=== PATIENT | male | born 1990 | race Caucasian/White ===

== ENCOUNTER 2025-05-26 12:54 | Emergency (ER) | payer OTHER, SELFPAY ==
[2025-05-26] VITALS (9 sets, daily range): BP systolic 131–163; BP diastolic 73–108; PULSE 79–81; TEMP 37.1; O2SAT 92–96; BMI 32.5
--- NOTE | 2025-05-26 13:26 | US_ITS ---
[address] [address] Patient Name: CHARAN SEBASTIAN MRN: [id number] date: 1990 Sex: M Assigned Patient Location: ER Current Patient Location: ER Accession/Order Number: [id number] Exam Date: 05/26/2025 14:41 Report Date: 05/26/2025 14:43 At the request of: HOWARD SIMS Procedure: US right upper quadrant LIMITED ABDOMINAL ULTRASOUND: CLINICAL HISTORY: RUQ pain COMPARISON: None TECHNIQUE: Grayscale and color Doppler images of the right upper quadrant organs were obtained. FINDINGS: Pancreas: Not visualized. Liver: Fatty infiltration. Gallbladder: Cholelithiasis. No wall thickening. Positive Faith sign. CBD: 2.2 mm. RT KIDNEY: No hydronephrosis. US/US right upper quadrant IMPRESSION: Fatty infiltration with cholelithiasis. Given the positive Faith sign, if acute cholecystitis is of clinical concern, further evaluation with HIDA scan is suggested. Impression dictated by: Alan Romero Jr., D.O. 05/26/2025 2:43 PM Dictation Location: [place] [address] Electronically authenticated by: [id number] Y Date: 05/26/2025 14:43
--- NOTE | 2025-05-26 13:33 | ED_ITS ---
HPI HPI - General Adult General Chief complaint: Abdominal Pain Stated complaint: UPPER EXTERMITY PAIN SPIT UP BLOOD Time Seen by Provider: 05/26/25 13:03 Source: patient Mode of arrival: walk-in History of Present Illness HPI narrative: Patient is a 34-year-old male with a PMH of anxiety that presents to the emergency department today with complaints of right upper quadrant abdominal pain and bloating that has been intermittently present for about a week, worse this morning. He states that the pain will get bad for about 5 to 6 hours after a meal intermittently throughout the last week. He denies any abdominal surgeries. He has tried Tylenol and famotidine for the pain without relief. He denies any chest pain or shortness of breath or heartburn symptoms. He states he also has been having bowel movements and vomiting intermittently when the pain is present throughout the last week as well. This morning he notes that his vomit was tinged with blood. He denies any blood in his bowel movements. He denies any illicit drug use but does endorse a long history of alcohol use, approximately 6-12 beers a night for many years. He states that he has abstained from alcohol for the last 2 weeks. Related Data Home Medications ?Medication ?Instructions ?Recorded ?Confirmed paroxetine HCl 20 mg tablet 20 mg PO DAILY 05/26/25 Previous Rx's ?Medication ?Instructions ?Recorded ondansetron HCl 4 mg tablet 4 mg PO Q6H PRN nausea and 05/26/25 vomiting #20 tabs oxycodone-acetaminophen 5 mg-325 1 tab PO Q6H PRN pain #20 tabs 05/26/25 mg tablet (Endocet) Allergies Allergy/AdvReac Type Severity Reaction Status Date / Time No Known Drug Allergies Allergy Verified 05/26/25 13:00 Opioid HPI Opioid Management Most Recent Opioid Data: Last Pain Scale 8 Today, 13:40 Last MAR Pain Assessment Today, 13:40 Review of Systems ROS Status of ROS 10 or more systems reviewed and unremark able except as noted in history and below PFSH PFSH Social History Little interest or pleasure in doing things: not at all Feeling down, depressed, or hopeless: not at all Exam Narrative Exam Narrative: General: Laying on ED cart, appears to be in pain but in no distress, age- appropriate Skin: Warm, dry, no pallor. No rash. Head: Normocephalic, atraumatic. Neck: Supple, non-tender. Eye: Pupils are equal, round and EOMI. No scleral icterus. Ears, Nose, Mouth, and Throat: No nasal mucosal hypertrophy. Oral mucosa is moist, no posterior oropharynx erythema, uvula is mid-line Cardiovascular: Regular Rate and Rhythm without murmur, gallop or rub. Respiratory: No accessory muscle use or respiratory distress. Lungs are clear to auscultation, no wheezing, rales or rhonchi Chest Wall: no tenderness Back: No midline thoracic or lumbar vertebral tenderness. Musculoskeletal: Full ROM of all extremities, no calf or popliteal tenderness GI: Abdomen is soft, nondistended, tender to palpation to the right upper quadrant, positive Faith sign, no rebound tenderness. No masses appreciated. No guarding or rigidity noted. Neurological: A&O x4. No cranial nerve dysfunction observed. No truncal ataxia. Moves all extremities. Sensation intact. Psychiatric: Cooperative and interactive. Normal mood and affect. Constitutional Vital Signs, click to edit/add: Last Vital Signs Temp 98.8 F 05/26/25 13:01 Pulse 81 05/26/25 13:48 Resp 22 H 05/26/25 13:48 BP 131/73 05/26/25 16:07 Pulse Ox 95 05/26/25 16:10 O2 Del Method Room Air 05/26/25 13:01 Course Reevaluation(s) Reevaluation #1: Patient responded well to first dose of morphine and Zofran but pain greatly returned after the ultrasound. 4 mg of morphine ordered. Patient and significant other updated with lab results. Waiting on ultrasound right upper quadrant results. Time: 14:33 Reevaluation #2: Patient attempting to sit up to change clothes for discharge and feeling woozy and the pain is causing him to not be able to catch his breath. 30 mg IV Toradol and 1 L normal saline bolus ordered. Time: 15:14 Reevaluation #3: I did call and speak with Dr. Oliveros, general surgeon at [facility], to see if patient could be seen tomorrow, he states the earliest they can see is Saturday. We are calling office to get patient an appointment to have at discharge. Patient states he is feeling better after the Toradol and IVF. Time: 16:07 Vital Signs Vital signs: Vital Signs Temperature 98.8 F 05/26/25 13:01 Pulse Rate 79 05/26/25 13:01 Respiratory Rate 18 05/26/25 13:01 Blood Pressure 163/108 H 05/26/25 13:01 Pulse Oximetry 96 05/26/25 13:01 Oxygen Delivery Method Room Air 05/26/25 13:01 Temperature 98.8 F 05/26/25 13:01 Pulse Rate 81 05/26/25 13:48 Respiratory Rate 22 H 05/26/25 13:48 Blood Pressure 131/73 05/26/25 16:07 Pulse Oximetry 95 05/26/25 16:10 Oxygen Delivery Method Room Air 05/26/25 13:01 Medical Decision Making MDM Narrative Medical decision making narrative: 34-year-old male with intermittent right upper quadrant abdominal pain, bloating, vomiting, diarrhea for approximately a week. History of anxiety and alcohol abuse. No previous abdominal surgeries. BP hypertensive on arrival. Heart rate stable. Afebrile. Positive Faith sign, abdominal exam without peritoneal signs. ECG ordered and NSR noted. IV placed and 4 mg of Zofran and 4 mg of morphine given for pain and nausea. Ultrasound right upper quadrant ordered and reveals cholelithiasis with no wall thickening. Labs as below. Given RUQ US findings patient likely has biliary colic with no signs of acute cholecystitis or cholangitis. Less likely to represent acute pancreatitis (neg lipase), PUD (including gastric perforation), acute infectious processes (pneumonia, hepatitis, pyelonephritis), atypical appendicitis, vascular catastrophe, bowel obstruction or viscus perforation, or acute coronary syndrome. Presentation not consistent with other acute, emergent causes of abdominal pain at this time. Appointment was attempted to be made with Dr. Oliveros in [place] for Saturday after speaking with him. His office states that patient's insurance requires a PCP referral or he would be self pay. Patient does have a new PCP appointment scheduled for Saturday. I encouraged him to keep this as he does not want to self-pay at Dr. Oliveros' office. I did provide Dr. Maxwell information on the discharge as well. Patient's pain is not controlled and he will be discharged with Percocet and Zofran to home. I did give him a work note to be off today and tomorrow. I discussed that he can always return to the ED if he experiences any new or worsening symptoms. Differential Diagnosis Differential Diagnosis: Cholecystitis, cholangitis, pancreatitis, acute hepatitis Lab Data Lab results reviewed: Yes I reviewed the patient's lab results Lab results narrative: UA, CBC, CMP, amylase, lipase ordered on arrival. CBC with no leukocytosis. Hypokalemia, K 3.2. Liver function tests and amylase/lipase within normal limits. UA WNL Labs: Lab Results 05/26/25 05/26/25 Range/Units 13:10 13:45 WBC 10.6 (4.0-11.0) 10^3/uL RBC 4.99 (4.70-6.10) 10^6/uL Hgb 15.0 (14.0-18.0) g/dL Hct 42.6 (42.0-54.0) % MCV 85.4 (80.0-94.0) fL MCH 30.1 (25.9-34.0) pg MCHC 35.2 (29.9-35.2) g/dL RDW 13.0 (11.0-15.0) % Plt Count 320 (150-450) 10^3/uL MPV 9.5 (9.5-13.5) fL Neut % (Auto) 77.2 H (43.0-75.0) % Lymph % (Auto) 13.7 L (20.5-60.0) % Isabella % (Auto) 7.6 (1.7-12.0) % Eos % (Auto) 0.5 L (0.9-7.0) % Baso % (Auto) 0.8 (0.2-2.0) % Neut # (Auto) 8.2 H (1.4-6.5) 10^3/uL Lymph # (Auto) 1.5 (1.2-3.8) 10^3/uL Isabella # (Auto) 0.8 (0.3-0.8) 10^3/uL Eos # (Auto) 0.1 (0.0-0.7) 10^3/uL Baso # (Auto) 0.1 (0.0-0.1) 10^3/uL Abs Immat Gran (auto) 0.02 (0.00-0.03) 10^3/uL Imm/Tot Granulo (auto) 0.2 (0.0-0.5) % Sodium 137 (136-145) mmol/L Potassium 3.2 L (3.5-5.1) mmol/L Chloride 100 (98-107) mmol/L Carbon Dioxide 24.2 (21.0-32.0) mmol/L Anion Gap 16.0 BUN 14.0 (7.0-18.0) mg/dL Creatinine 0.98 (0.70-1.30) mg/dL Est GFR ( Amer) >60 (>=60 mL/min/1.73m^2) Est GFR (Non-Af Amer) >60 (>=60 mL/min/1.73m^2) BUN/Creatinine Ratio 14.3 Glucose 114 H (74-106) mg/dL Calcium 9.6 (8.5-10.1) mg/dL Total Bilirubin 0.5 (0.2-1.0) mg/dL AST 20 (15-37) U/L ALT 44 (16-63) U/L Alkaline Phosphatase 64 (46-116) U/L Total Protein 7.6 (6.4-8.2) g/dL Albumin 3.5 (3.4-5.0) g/dL Globulin 4.1 g/dL Albumin/Globulin Ratio 0.9 Amylase 48 (25-115) U/L Lipase 20.0 (16.0-77.0) U/L Urine Color Yellow (YELLOW) Urine Clarity Clear (CLEAR) Urine pH 6.5 (5.0-9.0) Ur Specific [place] 1.015 (1.005-1.025) Urine Protein Negative (NEG/TRACE) mg/dL Urine Glucose (UA) Negative (NEGATIVE) mg/dL Urine Ketones 40 A (NEGATIVE) mg/dL Urine Occult Blood Negative (NEGATIVE) Urine Nitrite Negative (NEGATIVE) Urine Bilirubin Negative (NEGATIVE) Urine Urobilinogen 0.2 (0.2-1.0) EU/dL Ur Leukocyte Esterase Negative (NEGATIVE) Urine RBC 0-2 (0-2) #/HPF Urine WBC None seen (NONE SEEN) #/HPF Ur Squamous Epith Cells None seen (NONE/RARE) #/LPF Urine Crystals None seen (None Seen) #/HPF Urine Bacteria Trace A (NONE SEEN) #/HPF Urine Casts None seen (NONE SEEN) #/LPF Urine Mucus None seen (NONE SEEN) Ur Culture Indicated? No Imaging Data US - abdomen: Attestation: I have reviewed the pertinent imaging results. Radiologist's impression: ITS Impressions Upper Quadrant Ultrasound 05/26/25 13:26 IMPRESSION: Fatty infiltration with cholelithiasis. Given the positive Faith sign, if acute cholecystitis is of clinical concern, further evaluation with HIDA scan is suggested. Impression dictated by: Alan Romero Jr., D.O. 05/26/2025 2:43 PM Dictation Location: [place] [address] Electronically authenticated by: [id number] Y Date: 05/26/2025 14:43 ECG Data Attestation: ?I have reviewed the pertinent ECG results. Discharge Plan Discharge Chief Complaint: Abdominal Pain Clinical Impression: Cholelithiasis, Biliary colic Patient Disposition: Home, Self-Care Time of Disposition Decision: 15:02 Condition: Good Mode of Transportation: Private Vehicle Prescriptions / Home Meds: New oxycodone-acetaminophen [Endocet] 5-325 mg tablet 1 tab PO Q6H PRN (Reason: pain) Qty: 20 0RF ondansetron HCl 4 mg tablet 4 mg PO Q6H PRN (Reason: nausea and vomiting) Qty: 20 0RF No Action paroxetine HCl 20 mg tablet 20 mg PO DAILY Print Language: Romanian Instructions: Biliary Colic (ED), Gallstones (ED) Referrals: Obri, Samer [Other] - As soon as possible Referral Note: Keep appointment for Saturday. Sonny Maxwell MD [Physician, General Surgery] - As soon as possible Referral Note: Call for follow-up after discharge or get referral through PCP. Return to the emergency department if you experience new or worsening symptoms. Physician,Non-Staff, [Primary Care Provider] - 1 week Discharge Date/Time: 05/26/25 16:44
[2025-05-26] MEDS: MORPHINE SULFATE 4 MG/ML VIAL IV ×2 (13:40→14:44)
--- NOTE | 2025-05-26 13:42 | ECG_ITS ---
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 Measurements Intervals [place] Rate: 80 P: 19 VA: 144 QRS: 39 QRSD: 102 T: 22 QT: 370 QTc: 406 Interpretive Statements 1100 Sinus rhythm 2420 RSR (QR) in lead V1/V2, consistent with right ventricular conduction delay 9130 borderline ECG No previous ECG available for comparison Electronically Signed On 05-27-2025 19:25:09 EDT by HERBERTH WATSON M.D.
[2025-05-26 13:52] LABS: Hematocrit 42.6 % (42.0-54.0); Hemoglobin 15.0 g/dL (14.0-18.0); Immature Granulocytes Abs Auto 0.02 10^3/uL (0.00-0.03); Immature Granulocytes Pct Auto 0.2 % (0.0-0.5); Lymphocytes Absolute Auto 1.5 10^3/uL (1.2-3.8); Mean Corpuscular HGB Conc 35.2 g/dL (29.9-35.2); Mean Corpuscular Hemoglobin 30.1 pg (25.9-34.0); Mean Corpuscular Volume 85.4 fL (80.0-94.0); Platelet Count 320 10^3/uL (150-450); Red Blood Count 4.99 10^6/uL (4.70-6.10); White Blood Count 10.6 10^3/uL (4.0-11.0)
[2025-05-26 13:53] LABS: Glucose Urine UA NEGATIVE (NEGATIVE)
[2025-05-26 14:02] LABS: Amylase 48 U/L (25-115)
[2025-05-26 14:06] LABS: Cast Seen? NONE SEEN #/LPF (NONE SEEN); Crystals Seen? None Seen #/HPF (None Seen); Urine Culture Indicated NO
[2025-05-26 14:09] LABS: Alanine Aminotransferase 44 U/L (16-63); Albumin Globulin Ratio 0.9; Albumin Level 3.5 g/dL (3.4-5.0); Alkaline Phosphatase 64 U/L (46-116); Anion Gap 16.0; Aspartate Amino Transferase 20 U/L (15-37); Blood Urea Nitrogen 14.0 mg/dL (7.0-18.0); Calcium 9.6 mg/dL (8.5-10.1); Carbon Dioxide 24.2 mmol/L (21.0-32.0); Chloride 100 mmol/L (98-107); Estimated GFR (African America >60 (>=60 mL/min/1.73m^2); Estimated GFR (Non-African Ame >60 (>=60 mL/min/1.73m^2); Globulin 4.1 g/dL; Glucose 114 mg/dL (74-106); Lipase 20.0 U/L (16.0-77.0); Potassium 3.2 mmol/L (3.5-5.1); Sodium 137 mmol/L (136-145); Total Protein 7.6 g/dL (6.4-8.2)
[2025-05-26] MEDS: KETOROLAC TROMETHAMINE 30 MG/ML VIAL IVP (15:22)
[2025-05-26] MEDS: 0.9 % SODIUM CHLORIDE 1,000 ML 1000 ML IV (15:22)
== END 2025-05-26 16:44 | disposition home or self-care (01) ==
PROVIDERS: Physician Assistant; Emergency Provider Emergency Medicine
DX: K80.20 Calculus of gallbladder without cholecystitis without obstruction (principal); K80.50 Calculus of bile duct without cholangitis or cholecystitis without obstruction; R10.11 Right upper quadrant pain; R14.0 Abdominal distension (gaseous); R11.10 Vomiting, unspecified
CPT/HCPCS: 36415; 76705; 80053; 81001; 82150; 83690; 85025; 93005; 96361; 96374; 96375; 96376; 99285; J1885; J2270; J2405